=== PATIENT | female | born 1970 | race Caucasian/White ===

== ENCOUNTER 2021-10-25 08:55 | Day surgery (SDC) | payer OTHER ==
[~2021-10-25] VITALS: Ht 160 cm; Wt 63.6 kg
[2021-10-25] MEDS ORDERED: BENADRYL25 MG PO (09:16)
[2021-10-25] MEDS ORDERED: FEMRING1 EACH VAGINAL (09:16)
--- NOTE | 2021-10-25 11:00 | NUR ---
10/25/21 [address] 1056-PATIENT ARRIVED TO PACU ON 2L NC RR EVEN. PATIENT LAYING LEFT LATERAL IVF INFUSING. PATIENT AWAKE REMAINS VERY DROWSY ORIENTED TO PACU ENCOURAGED TO PASS GAS. DENIES PAIN OR NAUSEA PATIENT DOZES BACK TO SLEEP
--- NOTE | 2021-10-25 14:15 | OR ---
[facility] [address] [place], [place] [address] Signed DATE OF OPERATION: 10/25/2021 SURGEON: Kari Aquino MD PREOPERATIVE DIAGNOSES: 1. Colon screening. 2. Chronic diarrhea related to cholecystectomy in 2011. POSTOPERATIVE DIAGNOSIS: Normal-appearing colon. PROCEDURE: Total colonoscopy to the cecum with biopsy of the cecum, transverse colon, sigmoid and rectum. ANESTHESIA: Intravenous sedation; fentanyl 150 mcg and Versed 7 mg. INDICATION: This 51-year-old white woman is a patient of Corine Blankenship NP. She is well known to me from the past. She underwent laparoscopic cholecystectomy in 2011. She had developed diarrhea since that time; I was unaware of this. Most likely, her longstanding diarrhea is related to cholecystectomy. She has no family history of colon cancer and she has had no rectal bleeding. She is admitted to undergo screening colonoscopy as it has been greater than 10 years since colonoscopy last performed. She understands the risk of bleeding, infection, and perforation related to colonoscopy and wished to proceed. FINDINGS: The prep was excellent. Complete colonoscopy was undertaken to the cecum without question. She had no sign of diverticular formation, colitis, or cancer. Biopsies were obtained to rule out microscopic colitis given her long-standing diarrhea issue. DESCRIPTION OF PROCEDURE: The patient was brought to the endoscopy suite and placed in the lateral decubitus position. Given intravenous sedation to the point of slurred speech and nystagmus with full cardiopulmonary monitoring. Digital rectal examination was normal. An Olympus video colonoscope was passed in the rectum and manipulated throughout the colon ultimately intubating the cecum itself. The ileocecal valve and appendiceal orifice were normal. Biopsies were obtained of mucosa of the cecum. Despite its normal appearance, the scope was withdrawn and examination undertaken carefully. Biopsies were Electronically Signed By: KARI AQUINO MD 10/25/21 1415 PATIENT NAME: PAT ANDERSON OPERATIVE REPORT DATE OF : 68 REPORT #: [id number] PHYSICIAN: KARI AQUINO MD PCP: CORINE BLANKENSHIP NP REPORT IS CONFIDENTIAL AND NOT TO BE RELEASED WITHOUT AUTHORIZATION [facility] [address], [place] [address] Signed taken of the transverse, left sigmoid and rectum. All areas were normal grossly to examination. The scope was removed and the patient was taken to the recovery room in good condition. CONCLUDING DIAGNOSIS: Essentially normal appearing colon. Biopsies will assess for possible microscopic colitis given her long-standing diarrhea but more likely her diarrhea is related to post cholecystectomy status. PLAN: We will initiate colestipol 500 mg 1 to 4 times a day to assess for result for diarrhea control or if preferred Questran 4 g p.o. q.i.d. tapering to the lowest effective dose. She will return to see us in 4 to 6 weeks and we will assess her progress. MD ALBERTINA Phan/VIKASH /[id number] cc: Corine Blankenship NP Copies: CORINE BLANKENSHIP NP ~ Electronically Signed By: KARI AQUINO MD 10/25/21 1415 PATIENT NAME: MONICAPATDEEPAK GONZALES OPERATIVE REPORT DATE OF : 68 REPORT #: [id number] PHYSICIAN: KARI AQUINO MD PCP: CORINE BLANKENSHIP NP REPORT IS CONFIDENTIAL AND NOT TO BE RELEASED WITHOUT AUTHORIZATION
--- NOTE | 2021-10-29 14:05 | PATH ---
[facility] [address] [facility] [place], [place] [address] Signed SPECIMEN(S): A CECUM COLON BIOPSY SPECIMEN(S): B MID TRANSVERSE COLON BIOPSY SPECIMEN(S): C DESCENDING/LEFT COLON BIOPSY SPECIMEN(S): D SIGMOID COLON BIOPSY SPECIMEN(S): E RECTUM SPECIMEN SOURCE: A. CECUM COLON BIOPSY B. MID TRANSVERSE COLON BIOPSY C. DESCENDING/LEFT COLON BIOPSY D. SIGMOID COLON BIOPSY E. 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 Post: Normal-appearing colon. Colonoscopy. FINAL PATHOLOGIC DIAGNOSIS: A. Cecum, biopsy: - Colonic mucosa with no significant pathologic changes. B. Colon, mid transverse, biopsy: - Colonic mucosa with no significant pathologic changes. C. Colon, descending/left, biopsy: - Colonic mucosa with no significant pathologic changes. D. Colon, sigmoid, biopsy: - Colonic mucosa with no significant pathologic changes. E. Rectum, biopsy: - Colonic mucosa with no significant pathologic changes. BRP:cml:[id number] MICROSCOPIC EXAMINATION: Histologic sections of all submitted blocks are examined by light microscopy. These findings, together with the gross examination, support the pathologic diagnosis. GROSS DESCRIPTION: Five specimens are received in five containers, labeled "SB." A. The specimen, labeled "SB, cecum biopsy," is received in formalin and consists of three arredondo soft tissue fragments that measure 0.1-0.2 cm in greatest dimension. The specimen is entirely submitted in cassette (A1). B. The specimen, labeled "SB, mid transverse colon biopsy," is received in PATIENT NAME: PAT ANDERSON PATHOLOGY DATE OF : 68 REPORT #: [id number] PHYSICIAN: YORDY NAILS PCP: LAURIE LOCKWOOD NP REPORT IS CONFIDENTIAL AND NOT TO BE RELEASED WITHOUT AUTHORIZATION [facility] [address] [place] [address] Signed formalin and consists of two arredondo soft tissue fragments that measure 0.1-0.2 cm in greatest dimension. The specimen is entirely submitted in cassette (B1). C. The specimen, labeled "SB, descending colon biopsy," is received in formalin and consists of two arredondo soft tissue fragments that measure 0.2 cm in greatest dimension. The specimen is entirely submitted in cassette (C1). D. The specimen, labeled "SB, sigmoid colon biopsy," is received in formalin and consists of two arredondo soft tissue fragments that measure 0.2-0.3 cm in greatest dimension. The specimen is entirely submitted in cassette (D1). E. The specimen, labeled "SB, rectum biopsy," is received in formalin and consists of two arredondo soft tissue fragments that measure 0.2 cm in greatest dimension. The specimen is entirely submitted in cassette (E1). JS (under the direct supervision of a pathologist) The Gross Description was prepared using a voice recognition system. The report was reviewed for accuracy; however, sound-alike word errors, addition and/or deletions may occur. If there is any question about this report, please contact Client Services. PERFORMING LABORATORY: The technical component was performed by [facility], [address] [place] [id number] (CLIA# [id number]). [facility], [address] [address] (CLIA# [id number]). Diagnostician: Jacinto Torres MD Pathologist Electronically Signed 10/29/2021 Copies: ~ PATIENT NAME: PAT ANDERSON PATHOLOGY DATE OF : 68 REPORT #: [id number] PHYSICIAN: YORDY PATHOLOGY PCP: LAURIE LOCKWOOD NP REPORT IS CONFIDENTIAL AND NOT TO BE RELEASED WITHOUT AUTHORIZATION
== END 2021-10-25 12:05 | disposition home or self-care (01) ==
LOC: DS 08:55 → OPS 08:55 → DS 12:00 → OPS 12:05
PROVIDERS: ATTEND Surgery
PROC: 0DBL8ZX Excision of Transverse Colon, Via Natural or Artificial Opening Endoscopic, Diagnostic (ICD-10-PCS; 2021-10-25)
PROC: 0DBN8ZX Excision of Sigmoid Colon, Via Natural or Artificial Opening Endoscopic, Diagnostic (ICD-10-PCS; 2021-10-25)
PROC: 0DBP8ZX Excision of Rectum, Via Natural or Artificial Opening Endoscopic, Diagnostic (ICD-10-PCS; 2021-10-25)
PROC: 0DBH8ZX Excision of Cecum, Via Natural or Artificial Opening Endoscopic, Diagnostic (ICD-10-PCS; principal; 2021-10-25 10:00)
DX: K52.9 Noninfective gastroenteritis and colitis, unspecified (principal); Z90.49 Acquired absence of other specified parts of digestive tract; Z90.711 Acquired absence of uterus with remaining cervical stump
CPT/HCPCS: 99153; G0500; J2250; J3010; J7121